=== PATIENT | male | born 1980 | race Caucasian/White ===

== ENCOUNTER 2022-07-02 15:42 | Observation (INO) ==
[2022-07-02] MEDS ORDERED: methylPREDNISolone SOD SUCC 125 mg 2 ML VIAL IV ONE (16:02)
[2022-07-02 17:06] LABS: ABS Lymphocytes 1.8 10^3/ul (1.0-4.8); ABS Monocytes 0.8 10^3/ul (0-0.8); ABS Neutrophils 8.7 10^3/ul (1.5-7.7); Eosinophil % 0.3 %; Hematocrit 44 % (42-52); Hemoglobin 14.8 g/dL (14.0-18.0); Lymphocyte % 15.8 %; Mean Corpuscular HGB Conc 33 g/dL (31-36); Mean Corpuscular Hemoglobin 29 pg (27-31); Mean Corpuscular Volume 87 fL (80-94); Mean Platelet Volume 8.4 fL (7.4-10.4); Nucleated Red Blood Cells % 0.1; Platelet Count 156 10^3/uL (150-450); Red Cell Distribution Width 14 % (10-15); White Blood Count 11.3 10^3/uL (3.5-10.8)
[2022-07-02 17:22] LABS: INR 1.18 (0.89-1.11)
[2022-07-02 17:44] LABS: Albumin 3.7 g/dL (3.2-5.2); Albumin/Globulin Ratio 1.4 (1-3); Calcium 8.8 mg/dL (8.6-10.3); Globulin 2.6 g/dL (2-4); Total Bilirubin 0.4 mg/dL (0.2-1.0); Total Protein 6.3 g/dL (6.4-8.9); eGFR CKD-EPI 84.6 (>60)
[2022-07-02] MEDS ORDERED: Albuterol 2.5mg/3 ml (0.083%) NEB.SOLN INH PRN (17:45)
[2022-07-02 17:47] LABS: Potassium 3.9 mmol/L (3.5-5.0)
[2022-07-02] MEDS ORDERED: Nicotine GUM 4MG FRUIT FLAVOR PO PRN (18:52)
[2022-07-02] MEDS ORDERED: NS 0.45% 1000 ml BAG 500 ML IV SCH (19:00)
[2022-07-02] MEDS: Nicotine PATCH 14 MG/24 HR PATCH TRANSDERM SCH (19:59)
[2022-07-03 06:06] LABS: ABS Lymphocytes 0.8 10^3/ul (1.0-4.8); ABS Monocytes 0.2 10^3/ul (0-0.8); ABS Neutrophils 16.2 10^3/ul (1.5-7.7); Hematocrit 47 % (42-52); Hemoglobin 15.5 g/dL (14.0-18.0); Lymphocyte % 4.9 %; Mean Corpuscular HGB Conc 33 g/dL (31-36); Mean Corpuscular Hemoglobin 29 pg (27-31); Mean Corpuscular Volume 88 fL (80-94); Mean Platelet Volume 8.6 fL (7.4-10.4); Nucleated Red Blood Cells % 0.1; Platelet Count 178 10^3/uL (150-450); Red Blood Count 5.28 10^6 /uL (4.18-5.48); Red Cell Distribution Width 14 % (10-15); White Blood Count 17.2 10^3/uL (3.5-10.8)
[2022-07-03 06:13] LABS: INR 1.18 (0.89-1.11)
[2022-07-03 06:47] LABS: Calcium 9.4 mg/dL (8.6-10.3); Potassium 4.4 mmol/L (3.5-5.0); eGFR CKD-EPI 99.3 (>60)
[2022-07-03] MEDS: Nicotine PATCH 14 MG/24 HR PATCH TRANSDERM SCH (09:01)
[2022-07-03 10:42] VITALS: BP 127/60
== END 2022-07-03 11:45 | disposition home or self-care (01) ==
LOC: EDHOLD 15:42 → ED 15:42 → ICU 18:06
PROVIDERS: ADMIT Internal Medicine Critical Care Medicine; ATTEND Internal Medicine Critical Care Medicine

== ENCOUNTER 2024-04-05 06:01 | Inpatient (IN) ==
[~2024-04-05 06:01] MED LIST: HYDROmorphone 1 MG/1 ML SYRINGE IV SLOW PU PRN; NS 0.45% 1000 ml BAG 1,000 ML IV SCH; Naloxone 0.4 mg VIAL 0.4 mg/ml 1 ml VIAL IV PRN; Ondansetron 4 mg VIAL 2 MG/ML 2 ml VIAL IV PRN
[2024-04-05] MEDS ORDERED: ceFAZolin 1 GM in Dextrose 1 GM/50 ML BAG ONE (06:44)
[2024-04-05] MEDS ORDERED: Heparin 5000 UNITS/ML 1 mL VIAL ONE (06:44)
[2024-04-05] MEDS ORDERED: Scopolamine 1 mg/72hr PATCH ONE (06:44)
[2024-04-05] MEDS ORDERED: ceFAZolin 2 GM PREMIX 2 GM/50 ML BAG ONE (06:44)
[2024-04-05] MEDS ORDERED: Buffered Lidocaine 1% SYRIN 1 ml ONE (06:44)
[2024-04-05] MEDS: Lactated Ringers 1000 ml BAG 1,000 ML IV SCH ×2 (07:04→11:26)
[2024-04-05] MEDS: Buffered Lidocaine 1% SYRIN 1 ml INTRADERM ONE (07:04)
[2024-04-05 07:06] LABS: Rapid COVID-19 Molecular Undetected (Undetected)
[2024-04-05] MEDS ORDERED: Bupivacaine 0.25% EPI 200,000 30 ML SDV ONE (07:12)
[2024-04-05] MEDS ORDERED: fentaNYL 100 mcg/2 ml 50 MCG/ML VIAL ONE (07:17)
[2024-04-05] MEDS ORDERED: Midazolam 2 mg/2 ml VIAL 1 mg/ml 2 ml VIAL (2 mg) ONE (07:18)
[2024-04-05] MEDS ORDERED: Rocuronium 50 mg VIAL 10 mg/ml 5 ml VIAL (50 mg) ONE ×2 (07:19→07:58)
[2024-04-05] MEDS ORDERED: Propofol 10 MG/ML 20 ML BTL ONE (07:23)
[2024-04-05] MEDS ORDERED: Lidocaine 2% PF 5 ML VIAL ONE (07:23)
[2024-04-05] MEDS ORDERED: HYDROmorphone 0.5 MG/0.5 ML SYRINGE ONE ×2 (08:14→08:56)
[2024-04-05] MEDS ORDERED: HYDROmorphone 1 MG/1 ML SYRINGE IV SLOW PU PRN (09:48)
[2024-04-05] MEDS ORDERED: Ondansetron 4 mg VIAL 2 MG/ML 2 ml VIAL IV PRN (09:48)
[2024-04-05] MEDS ORDERED: HYDROmorphone 0.5 MG/0.5 ML SYRINGE IV SLOW PU PRN (09:48)
[2024-04-05] MEDS ORDERED: Acetaminophen IV 1 GM/100ML 1,000 MG/100 ML BAG IV PRN (09:48)
[2024-04-05] MEDS: Acetaminophen IV 1 GM/100ML 1,000 MG/100 ML BAG IV ONE (11:25)
[2024-04-05] MEDS: Scopolamine 1 mg/72hr PATCH TRANSDERM ONE (11:26)
[2024-04-05] MEDS: Heparin 5000 UNITS/ML 1 mL VIAL SUBCUT SCH (15:09)
[2024-04-06] MEDS: D5W 1/2 NS KCl 20 meq 1000 ml 1,000 ML IV SCH (10:00)
[2024-04-06 13:43] VITALS: BP 127/73
== END 2024-04-06 15:01 | disposition home or self-care (01) | DRG 403 ==
LOC: AA 06:01 → SSU 09:48
PROVIDERS: ADMIT Surgery; ATTEND Surgery